=== PATIENT | female | born 1995 | race Caucasian/White ===

== ENCOUNTER 2021-12-04 14:17 | Emergency (ER) | payer OTHER, SELFPAY ==
[2021-12-04 14:33] VITALS: BP 130/74; PULSE 108; O2SAT 96
[2021-12-04 14:37] VITALS: BP 140/82; PULSE 100; RESP 19; TEMP 36.6; O2SAT 98; BMI 24.0
--- NOTE | 2021-12-04 15:05 | ED.ALCOHOL ---
HPI - Alcohol General Chief Complaint: ETOH/Substance Use Stated Complaint: ETOH INTOXICATION PER EMS Time Seen by Provider: 12/04/21 14:42 Source: patient Mode of arrival: EMS Limitations: no limitations History of Present Illness HPI narrative: 26-year-old female who presents emergency department for evaluation of alcohol intoxication. The patient states that she drinks vodka daily. She states that she was drinking vodka today and the police came to her house for wellness check. She does not know who called the police or why they called the police. She states that the police gave her an option to be placed in protective custody or to go to the emergency department for evaluation. The patient states that she is not interested in getting into detox and she has been in multiple detox is in the past and can stop drinking. She states that she is sad since her fiance broke up with her yesterday but she denies being suicidal or homicidal. She did tell me that when she stops drinking she does get the shakes but has never had delirium tremors. She denied being ill in any way prior to coming to the emergency department. She denied fever, chills, chest pain, shortness of breath. MD complaint: alcohol intoxication Last drink: Hours (ago) (Just prior to coming to emergency depart) Amount of alcohol consumed: Unknown amount of vodka Chronic alcohol use: Yes Previous visits for alcohol intoxication: No Recent trauma: No Associated symptoms: denies other symptoms Treatments prior to arrival: none Review of Systems Review of Systems: Yes all other systems are reviewed and are negative [facility] Past Medical History [facility] Narrative: Social history: She states she has been living in [place] since February of 2021, she states that she is from [place] and her insurance is [employer] and she cannot get into a detox program in as a treat this however she states she is not interested in getting into detox. She does smoke cigarettes. She denies drug use. Admits to drinking alcohol daily. Physical Exam ED Vital Signs: Vital Signs - 24 hr 12/04/21 14:37 Temperature 98 F Pulse Rate 100 Respiratory Rate 19 Blood Pressure 140/82 H Pulse Oximetry 98 Oxygen Delivery Method Room Air BMI result Body Mass Index 24.0 Const Other: Awake, alert, female patient, she answers all questions appropriately, she does not appear to be in distress, she is very pleasant and cooperative. Orientation/consciousness: oriented to person and oriented to place H[place]NE Head: Yes normal to inspection, Yes normocephalic and Yes atraumatic Ears: external ears normal General nose exam: Normal external nose present Face and sinus: Yes normal facial exam Mouth: Normal oral and palatal mucosa present Throat: Yes posterior oropharynx normal Eyes General: appearance normal, both eyes and all related structures Pupils: Equal, round and reactive pupils present Neck Neck: Yes normal visual inspection, Yes no lymphadenopathy, Yes trachea midline and Yes supple Chest Chest palpation & inspection: normal inspection of the chest and normal palpation of entire chest wall Resp Effort & Inspection: normal respiratory effort and able to speak in complete sentences Auscultation: clear to auscultation bilaterally Cardio Rate: regular rate Rhythm: regular rhythm Heart sounds: S1 normal heart sound present, S2 normal heart sound present and no murmurs GI Inspection: Yes normal to inspection Palpation (GI): Soft to palpation, nontender and no guarding Auscultation: normal bowel sounds General: Yes no CVA tenderness Back/Spine/Pelvis Back: no CVA tenderness Skin General skin exam: no rashes or lesions noted Neuro Other: The patient was able to walk in the emergency department without any assistance. General: oriented to person and oriented to place Cranial nerves: Yes CN's II-XII intact bilaterally and Yes Equal, round and reactive pupils present Cognition (Neuro): normal cognition Motor exam (neuro): 5/5 motor strength present throughout Extrem General: Yes normal to inspection Psych Appearance: grossly normal Speech and movement: Normal speech and movement present Affect: normal affect Attitude: cooperative Thought process: Normal thought process present Thought content: Normal thought content present Course Course Course Narrative: 26-year-old female who presents emergency department for evaluation of alcohol intoxication. She states that the police came to her house for a wellness check in determined that she was intoxicated. She was offered to go into protective custody or to come to the emergency department for evaluation. Since being here in the emergency department she has been very pleasant and cooperative, she answers all questions appropriately. She was able to give me a good history about her alcohol use disorder, she was able to tell me she has been a multiple detox programs but she has never been able to achieve sobriety. At this time, I did offer her an evaluation for our community living coach but she states that she just wants to go home. Again she denies being suicidal or homicidal. At this time, I do believe that the patient is intoxicated however I do believe that she is competent to understand the consequences of her decision to continue to drink alcohol and not seek treatment. Since the patient is competent to refuse care, she will be discharged to home. She states she does have enough money to get a ride home. Therefore, the patient will be discharged home. Discharge Plan Discharge Clinical Impression: Alcoholic intoxication Patient Disposition: Home, Self-Care Instructions: Alcohol Use Disorder (ED) Additional Instructions: You should consider getting into an alcohol detox program. Follow-up with your doctor in 2 days. Please return to the emergency department if your symptoms get worse or if you develop any symptoms that are concerning to you.
== END 2021-12-04 15:19 | disposition home or self-care (01) ==
PROVIDERS: Emergency Provider Emergency Medicine Emergency Medical Services
DX: F10.220 Alcohol dependence with intoxication, uncomplicated (principal); Y90.9 Presence of alcohol in blood, level not specified; F17.210 Nicotine dependence, cigarettes, uncomplicated
CPT/HCPCS: 99282

== ENCOUNTER 2021-12-05 15:47 | Emergency (ER) | payer OTHER, SELFPAY ==
[2021-12-05 16:06] VITALS: BP 136/90; BP 139/75; PULSE 120; PULSE 124; RESP 22; TEMP 36.8; O2SAT 94; O2SAT 95; BMI 22.4
--- NOTE | 2021-12-05 16:50 | ED.PSYCH ---
HPI - Psych General Chief Complaint: Psychiatric Symptoms Stated Complaint: etoh Time Seen by Provider: 12/05/21 16:00 Source: EMS and RN notes reviewed Mode of arrival: EMS Limitations: altered mental status ( intoxicated) History of Present Illness HPI Narrative: 26-year-old female presents to the emergency department by EMS. A well-being check was requested by family. The patient is known to abuse alcohol, and upon EMS arrival, the patient stated that she was feeling suicidal along with being intoxicated. The patient states she would drink herself to . MD complaint: suicidal ideation, feels depressed, altered mental status and alcohol abuse Onset (ago): unknown Duration: constant History of same: Yes Context: recent alcohol abuse Associated psychiatric symptoms: suicidal ideation Related Data Allergies Allergy/AdvReac Type Severity Reaction Status Date / Time Unable to Assess Allergy Verified 12/05/21 16:57 Review of Systems Review of Systems: Yes Unobtainable due to mental status Neurologic: Reports Abnormal speech present and Reports confusion Psychiatric: Psychiatric: Reports confusion COUNTS INCLUDE 234 BEDS AT THE [facility] Past Medical History Source: old records reviewed and nursing notes reviewed Social History Social History Advance Directives: No Advance Directives Information Provided: No Physical Exam Vital Signs: Vital Signs: Last Vital Signs Temp 98.2 F 12/05/21 16:06 Pulse 120 H 12/05/21 16:06 Resp 22 H 12/05/21 16:06 BP 139/75 12/05/21 16:06 Pulse Ox 94 12/05/21 16:06 O2 Del Method 12/05/21 16:06 BMI result Body Mass Index 22.4 Slight tachycardia Const: General: cooperative, confusion and intoxicated appearing Nutritional Appearance: average body habitus Orientation/consciousness: oriented to person, oriented to place and confusion Limitations: altered mental status HEENT: Head: Yes normal to inspection, Yes normocephalic and Yes atraumatic Ears: hearing grossly normal bilaterally General nose exam: Normal external nose present Face and sinus: Yes normal facial exam Eyes: General: appearance normal, both eyes and all related structures Conjunctivae: conjunctivae normal Sclerae: sclerae normal Pupils: Equal, round and reactive pupils present Neck: Neck: Yes normal visual inspection and Yes full ROM Chest: Chest palpation & inspection: normal inspection of the chest Resp: Effort & Inspection: normal respiratory effort, no cough and no respiratory distress Cardio: Rate: tachycardic Rhythm: regular rhythm GI: Inspection: Yes normal to inspection Palpation (GI): nontender Back/Spine/Pelvis: Cervical Spine: cervical ROM normal and No Cervical spine tenderness Skin: General skin exam: no rashes or lesions noted Lesions: no lesions Rashes: no rashes Neuro: General: oriented to person, oriented to place, moves all extremities, confusion and Unable to assess gait Cranial nerves: Yes CN's II-XII intact bilaterally and Yes Equal, round and reactive pupils present Speech: Abnormal speech present slurred Gait exam (Neuro): Unable to assess gait Extrem: General: Yes normal to inspection and Yes full ROM Psych: Appearance: disheveled Mental Status: mental status grossly normal Speech and movement: Slurred speech present Attitude: cooperative Thought content: suicidality Course Reevaluation(s) Reevaluation #1: The patient was more awake and alert. Crying because she just wants to go home. I explained to her that she needed to be evaluated by crisis Team, once her alcohol level was low enough that she could provide a somewhat sober interview. Time: 18:00 Reevaluation #2: patient is ambulatory in the emergency department, and asking when she is able to leave. Time: 19:51 MDM - Psych MDM Narrative Medical decision making narrative: at the time of initial evaluation, the patient denies suicidality Alcohol level is 460. The patient will be medically cleared sometime tomorrow morning for evaluation by psychiatry. Differential Diagnosis Differential diagnosis: Likely suicidal ideation, depression and alcohol intoxication Medical Records Attestation: I reviewed the patient's medical records. Lab Data Attestation: I reviewed the patient's lab results. Lab results narrative: CBC is normal, chemistries shows a slightly elevated sodium level as well as a low BUN. Alcohol level is significantly elevated. Result diagrams: 12/05/21 17:32 12/05/21 17:32 Labs: Lab Results 12/05/21 12/05/21 12/05/21 Range/Units 16:28 17:32 17:32 WBC (4.8-10.8) X10*3/uL RBC (4.20-5.50) X10*6/uL Hgb (12.0-16.0) g/dl Hct (37.0-47.0) % MCV (80.0-98.0) fL MCH (27.0-33.0) pg MCHC (31.0-35.0) g/dl RDW (11.0-16.0) % Plt Count (160-400) X10*3/uL MPV (9.4-12.3) fL Immature Gran % (Auto) (0.0-0.4) % Neut % (Auto) (45-73) % Lymph % (Auto) (20-40) % [place] % (Auto) (2-11) % Eos % (Auto) (0-4) % Baso % (Auto) (0-2) % Lymph # (Auto) (1.2-4.9) X10*3/uL [place] # (Auto) (0.1-1.2) X10*3/uL Eos # (Auto) (0.0-0.4) X10*3/uL Baso # (Auto) (0.0-0.2) X10*3/uL Abs Immat Gran (auto) (0.00-0.03) X10*3/uL Absolute Neuts (auto) (2.0-8.3) x10*3/uL Absolute Nucleated RBC (0.0-0.012) X10*3/uL Nucleated RBC % (auto) (0.0-0.2) /100WBC Smear Tech's Comments Sodium 147 H (135-145) mmol/L Potassium 3.3 (3.3-5.1) mmol/L Chloride 105 (96-108) mmol/L Carbon Dioxide 29 (22-29) mmol/L Anion Gap 16 (12-20) BUN 7 L (9-16) mg/dL Creatinine 0.65 (0.5-1.4) mg/dL Estim Creat Clear Calc 119.0 Estimated GFR > 60 Random Glucose 100 (60-115) mg/dL Calcium 8.3 L (8.4-10.2) mg/dL Total Bilirubin 0.5 (0.0-1.0) mg/dL AST 140 H (5-31) U/L ALT 100 H (0-31) U/L Alkaline Phosphatase 82 (39-117) U/L Total Protein 7.0 (6.5-8.0) g/dL Albumin 4.1 (3.5-5.0) g/dL Urine Color Urine Appearance Urine pH (5.0-9.0) Ur Specific [place] (1.005-1.025) Urine Protein (Neg-Trace) mg/dL Urine Glucose (UA) (Negative) mg/dL Urine Ketones (Negative) mg/dL Urine Blood (Negative) Urine Nitrite (Negative) Ur Leukocyte Esterase (Negative) Urine RBC (0-2) /HPF Urine WBC (0-5) /HPF Ur Squamous Epith Cells (0-2) /HPF Urine Bacteria (None Seen) Hyaline Casts (0-2) /LPF Urine Test (NEGATIVE) Urine Opiates Screen (Not Detect) Urine Fentanyl Screen (Not Detect) Ur Barbiturates Screen (Not Detect) Ur Phencyclidine Scrn (Not Detect) Ur Amphetamines Screen (Not Detect) U Benzodiazepines Scrn (Not Detect) Urine Cocaine Screen (Not Detect) U Marijuana (THC) Screen (Not Detect) Ethyl Alcohol 436 H* mg/dL COVID-19 (SAFIA) Negative (Negative) COVID-19 Clin Com See Note 12/05/21 12/05/21 12/05/21 Range/Units 17:32 19:43 19:43 WBC 4.5 L (4.8-10.8) X10*3/uL RBC 4.70 (4.20-5.50) X10*6/uL Hgb 13.0 (12.0-16.0) g/dl Hct 39.4 (37.0-47.0) % MCV 83.8 (80.0-98.0) fL MCH 27.7 (27.0-33.0) pg MCHC 33.0 (31.0-35.0) g/dl RDW 14.2 (11.0-16.0) % Plt Count 155 L (160-400) X10*3/uL MPV 9.1 L (9.4-12.3) fL Immature Gran % (Auto) 0.4 (0.0-0.4) % Neut % (Auto) 78.9 H (45-73) % Lymph % (Auto) 13.4 L (20-40) % [place] % (Auto) 6.5 (2-11) % Eos % (Auto) 0.4 (0-4) % Baso % (Auto) 0.4 (0-2) % Lymph # (Auto) 0.6 L (1.2-4.9) X10*3/uL [place] # (Auto) 0.3 (0.1-1.2) X10*3/uL Eos # (Auto) 0.0 (0.0-0.4) X10*3/uL Baso # (Auto) 0.0 (0.0-0.2) X10*3/uL Abs Immat Gran (auto) 0.02 (0.00-0.03) X10*3/uL Absolute Neuts (auto) 3.5 (2.0-8.3) x10*3/uL Absolute Nucleated RBC 0.000 (0.0-0.012) X10*3/uL Nucleated RBC % (auto) 0.0 (0.0-0.2) /100WBC Smear Tech's Comments VERIFIED Sodium (135-145) mmol/L Potassium (3.3-5.1) mmol/L Chloride (96-108) mmol/L Carbon Dioxide (22-29) mmol/L Anion Gap (12-20) BUN (9-16) mg/dL Creatinine (0.5-1.4) mg/dL Estim Creat Clear Calc Estimated GFR Random Glucose (60-115) mg/dL Calcium (8.4-10.2) mg/dL Total Bilirubin (0.0-1.0) mg/dL AST (5-31) U/L ALT (0-31) U/L Alkaline Phosphatase (39-117) U/L Total Protein (6.5-8.0) g/dL Albumin (3.5-5.0) g/dL Urine Color Yellow Urine Appearance Cloudy Urine pH 6.5 (5.0-9.0) Ur Specific [place] 1.015 (1.005-1.025) Urine Protein 100 (2+) H (Neg-Trace) mg/dL Urine Glucose (UA) Negative (Negative) mg/dL Urine Ketones Negative (Negative) mg/dL Urine Blood Large (3+) H (Negative) Urine Nitrite Negative (Negative) Ur Leukocyte Esterase Small (1+) H (Negative) Urine RBC >20 H (0-2) /HPF Urine WBC 11-20 H (0-5) /HPF Ur Squamous Epith Cells 11-20 (0-2) /HPF Urine Bacteria Trace (None Seen) Hyaline Casts 0-2 (0-2) /LPF Urine Test NEGATIVE (NEGATIVE) Urine Opiates Screen (Not Detect) Urine Fentanyl Screen (Not Detect) Ur Barbiturates Screen (Not Detect) Ur Phencyclidine Scrn (Not Detect) Ur Amphetamines Screen (Not Detect) U Benzodiazepines Scrn (Not Detect) Urine Cocaine Screen (Not Detect) U Marijuana (THC) Screen (Not Detect) Ethyl Alcohol mg/dL COVID-19 (SAFIA) (Negative) COVID-19 Clin Com 12/05/21 Range/Units 19:43 WBC (4.8-10.8) X10*3/uL RBC (4.20-5.50) X10*6/uL Hgb (12.0-16.0) g/dl Hct (37.0-47.0) % MCV (80.0-98.0) fL MCH (27.0-33.0) pg MCHC (31.0-35.0) g/dl RDW (11.0-16.0) % Plt Count (160-400) X10*3/uL MPV (9.4-12.3) fL Immature Gran % (Auto) (0.0-0.4) % Neut % (Auto) (45-73) % Lymph % (Auto) (20-40) % [place] % (Auto) (2-11) % Eos % (Auto) (0-4) % Baso % (Auto) (0-2) % Lymph # (Auto) (1.2-4.9) X10*3/uL [place] # (Auto) (0.1-1.2) X10*3/uL Eos # (Auto) (0.0-0.4) X10*3/uL Baso # (Auto) (0.0-0.2) X10*3/uL Abs Immat Gran (auto) (0.00-0.03) X10*3/uL Absolute Neuts (auto) (2.0-8.3) x10*3/uL Absolute Nucleated RBC (0.0-0.012) X10*3/uL Nucleated RBC % (auto) (0.0-0.2) /100WBC Smear Tech's Comments Sodium (135-145) mmol/L Potassium (3.3-5.1) mmol/L Chloride (96-108) mmol/L Carbon Dioxide (22-29) mmol/L Anion Gap (12-20) BUN (9-16) mg/dL Creatinine (0.5-1.4) mg/dL Estim Creat Clear Calc Estimated GFR Random Glucose (60-115) mg/dL Calcium (8.4-10.2) mg/dL Total Bilirubin (0.0-1.0) mg/dL AST (5-31) U/L ALT (0-31) U/L Alkaline Phosphatase (39-117) U/L Total Protein (6.5-8.0) g/dL Albumin (3.5-5.0) g/dL Urine Color Urine Appearance Urine pH (5.0-9.0) Ur Specific [place] (1.005-1.025) Urine Protein (Neg-Trace) mg/dL Urine Glucose (UA) (Negative) mg/dL Urine Ketones (Negative) mg/dL Urine Blood (Negative) Urine Nitrite (Negative) Ur Leukocyte Esterase (Negative) Urine RBC (0-2) /HPF Urine WBC (0-5) /HPF Ur Squamous Epith Cells (0-2) /HPF Urine Bacteria (None Seen) Hyaline Casts (0-2) /LPF Urine Test (NEGATIVE) Urine Opiates Screen Not Detected (Not Detect) Urine Fentanyl Screen Not Detected (Not Detect) Ur Barbiturates Screen Not Detected (Not Detect) Ur Phencyclidine Scrn Not Detected (Not Detect) Ur Amphetamines Screen Not Detected (Not Detect) U Benzodiazepines Scrn Not Detected (Not Detect) Urine Cocaine Screen Not Detected (Not Detect) U Marijuana (THC) Screen Not Detected (Not Detect) Ethyl Alcohol mg/dL COVID-19 (SAFIA) (Negative) COVID-19 Clin Com Discharge Plan Discharge Clinical Impression: Suicidal ideation, Alcohol abuse, Alcohol intoxication Patient Disposition: Still a Patient
[2021-12-05 16:53] LABS: COVID-19 Test Negative (Negative)
--- NOTE | 2021-12-05 17:39 | PC.NURSE ---
Patients mother called Yahaira Butler [phone]. states she had [employer] insurance from [place]. She is not sure if still active. Mom states she is going to court in am to file section 35 paperwork. States she can not leave before paperwork is done. Then a she will be handed over to a correctional security officer in am.
[2021-12-05 17:42] LABS: PLT CLUMP 1; SCAN SMEAR FLAG 1
[2021-12-05 17:44] LABS: Basophils Percent Auto 0.4 % (0-2); Eosinophils Percent Auto 0.4 % (0-4); Hematocrit 39.4 % (37.0-47.0); Imm Gran Abs Auto 0.02 X10*3/uL (0.00-0.03); Imm Gran Pct Auto 0.4 % (0.0-0.4); Lymphocytes Absolute Auto 0.6 X10*3/uL (1.2-4.9); Lymphocytes Percent Auto 13.4 % (20-40); MANUAL DIFF FLAG SCAN; Mean Corpuscular Hemoglobin 27.7 pg (27.0-33.0); Mean Corpuscular Volume 83.8 fL (80.0-98.0); Mean Platelet Volume 9.1 fL (9.4-12.3); Monocytes Absolute Auto 0.3 X10*3/uL (0.1-1.2); Monocytes Percent Auto 6.5 % (2-11); Neutrophils Absolute Auto 3.5 x10*3/uL (2.0-8.3); Neutrophils Percent Auto 78.9 % (45-73); Red Cell Distribution Width 14.2 % (11.0-16.0)
--- NOTE | 2021-12-05 17:45 | PC.NURSE ---
Patient came in crying, etoh. Patient states she wants her mother. Told her mother can come and visit she told Hailey, she can't she's . Patient is requesting to see she wants
[2021-12-05 17:49] LABS: Platelet Count 155 X10*3/uL (160-400); SLIDE REVIEW VERIFIED; White Blood Count 4.5 X10*3/uL (4.8-10.8)
[2021-12-05 17:58] LABS: Ethanol 436 mg/dL
[2021-12-05 18:02] LABS: Albumin Level 4.1 g/dL (3.5-5.0); Anion Gap 16 (12-20); Bilirubin Total 0.5 mg/dL (0.0-1.0); Blood Urea Nitrogen 7 mg/dL (9-16); Calcium 8.3 mg/dL (8.4-10.2); Carbon Dioxide 29 mmol/L (22-29); Chloride 105 mmol/L (96-108); Estimated Glomerular Filt Rate > 60; Glucose Random 100 mg/dL (60-115); Potassium 3.3 mmol/L (3.3-5.1); Sodium 147 mmol/L (135-145)
[2021-12-05 18:17] LABS: Alanine Aminotransferase 100 U/L (0-31); Alkaline Phosphatase 82 U/L (39-117); Aspartate Amino Transferase 140 U/L (5-31)
[2021-12-05 19:53] LABS: Appearance Urine Cloudy; Color Urine Yellow; Glucose Urine UA Negative (Negative); Leukocyte Esterase Urine Small (1+) (Negative); Nitrite Urine Negative (Negative); PH 6.5 (5.0-9.0); Specific Gravity - Urine 1.015 (1.005-1.025); UMIC TRIGGER UACC YES; Urine Blood Large (3+) (Negative); Urine Ketones Negative (Negative); Urine Protein 100 (2+) mg/dL (Neg-Trace)
[2021-12-05 19:54] LABS: UPreg QC Valid YES; Urine Pregnancy NEGATIVE (NEGATIVE)
[2021-12-05 20:04] LABS: Bacteria Urine Trace (None Seen); Hyaline Casts Urine 0-2 /LPF (0-2); RBC Urine >20 /HPF (0-2); UACC Culture Trigger YES
[2021-12-05 20:05] LABS: Amphetamine Screen Urine Not Detected (Not Detect); Barbiturates, Urine Not Detected (Not Detect); Benzodiazepines Screen Urine Not Detected (Not Detect); Cannabinoid Screen Urine Not Detected (Not Detect); Cocaine Screen Urine Not Detected (Not Detect); Fentanyl, urine Not Detected (Not Detect); Opiate Screen Urine Not Detected (Not Detect); Phencyclidine Screen Urine Not Detected (Not Detect)
[2021-12-06 03:15] VITALS: BP 138/69; PULSE 84; RESP 17; TEMP 36.8; O2SAT 95
[2021-12-06] MEDS: LORazepam 1 MG TABLET 2 MG PO ×2 (06:36→09:52)
--- NOTE | 2021-12-06 06:51 | PC.NURSE ---
Patient slept through the night, no distress observed/reported, asymptomatic of ETOH withdrawal, PRN ativan 2 mg po at 0636 for comfort, [facility] referral completed/confirmed/pending ETA, patient's aunty who raised her is filing section 35 this morning, aunty and jesúse requesting to keep patient here until court order is approved, med rec completed/patient is currently not on any medication, VSS, will continue to monitor.
[2021-12-06 08:13] VITALS: BP 128/88; PULSE 108; RESP 18; TEMP 37.4; O2SAT 97
--- NOTE | 2021-12-06 09:56 | PC.NURSE ---
pt is visibly shaky but denies any hallucinations or delusions. medicated with 2 mg of ativan
--- NOTE | 2021-12-06 10:41 | MHC.CARE ---
CARE Team spoke with, Yahaira Butler [phone] who reported she is at the [facility] [address] filing a Section 35
--- NOTE | 2021-12-06 10:44 | MHC.CARE ---
Pt is 26 yearold female who presented to [facility] ED via EMS called by her family for a wellness check due to alcohol intoxication. Pts BAL was 436. Today, Pt denies current SI/HI/VH/AH. Pt reports struggling with alcohol use for multiple years; Pt reports intermittent periods of sobriety typically a few weeks at time. Pt insight on the severity her alcohol use is minimal at this time and Pt is minimizing of the negative effects it has on her life. Pt states she does not want substance use treatment at time. Pt is currently being given Ativan for alcohol withdrawal symptoms. CARE Team is awaiting a follow up call from Pts mother regarding the status of the Section 35 Dr. Rocha aware
== END 2021-12-06 12:27 ==
PROVIDERS: Emergency Provider Emergency Medicine
DX: F33.1 Major depressive disorder, recurrent, moderate (principal); F10.129 Alcohol abuse with intoxication, unspecified; Y90.8 Blood alcohol level of 240 mg/100 ml or more; Z20.822 Contact with and (suspected) exposure to COVID-19; Z79.899 Other long term (current) drug therapy
CPT/HCPCS: 36415; 80053; 80307; 81001; 81025; 82077; 85025; 87086; 87635; 99284